=== PATIENT | male | born 1950 | race Caucasian/White ===

== ENCOUNTER → 2017-10-29 | Outpatient (CLI) | payer OTHER ==
--- NOTE | 2017-10-30 08:12 | CT ---
EXAMINATION TYPE: CT chest wo con DATE OF EXAM: 10/29/2017 COMPARISON: NONE at this location. HISTORY: follow up for COPD CT DLP: 645 mGycm, Automated exposure control for dose reduction was used. CONTRAST: Performed injected with 0 mL of Isovue 370. TECHNIQUE: Axial images were obtained at 5 mm thick sections. Reconstructed images are reviewed on [employer] computer in the coronal plane. FINDINGS: Portion of the thyroid visualized is normal. Degenerative changes and anterior cervical fus ion are evident in the lower cervical spine. Emphysematous changes are present. Paraseptal emphysematous changes appear to be present. Some basila r pulmonary fibrosis is likely present. Larger bullae and blebs are present on the right. Some scarri ng is likely present in the upper outer anterior position right upper lobe. Series 4 image 28. Underl ania mass is not excluded. This irregular area measures 1.1 x 1.5 cm in maximum dimensions. Monitorin g is recommended. Follow-up chest CT in 3-6 months is recommended. Multiple superior mediastinal lymph nodes are present. There is a 1.1 cm lymph node adjacent to the right subclavian vein. Additional subcentimeter lymph nodes are present. Pretracheal adenopathy is pr esent which is enlarged, the largest measures 1.3 cm above the bong. There is periaortic and aortop ulmonary window lymphadenopathy which is enlarged at 1.0 cm. Lack of intravenous contrast limits eval uation for hilar adenopathy. A 1.6 cm subcarinal lymph node is likely present. Smaller lymph adenopat hy is also present. The ascending aorta diameter at the level of the main pulmonary artery is 3.1 cm. The main pulmonary artery diameter at the bifurcation is 2.[address] sections are obtained through the upper abdomen. Abdomen is essentially unremarkable. Ther e is a small to moderate size hiatal hernia present. IMPRESSIONS: 1. Irregular area of increased density upper lateral right lung with extensive emphysematous change a djacent. Scarring is suspected. Underlying mass is not excluded. Follow-up exam in 3-6 months is mykel mmended. 2. Multiple enlarged mediastinal lymph nodes. The possibility of metastatic disease or lymphoma. A Yellow level critical message alert has been initiated for Linda Pollard via the [employer] Critical Results System on 10/30/2017 8:09 AM. This message alert has been sent to Linda Pollard via the preferences provided by the clinician for the receipt of Radiology Critical Fi ndings. Message ID [id number].
== END | disposition home or self-care (01) ==
LOC: RADCTMAIN 17:26
PROVIDERS: ATTEND Physician Assistant Medical
DX: J43.9 Emphysema, unspecified (principal); R59.0 Localized enlarged lymph nodes
CPT/HCPCS: 71250

== ENCOUNTER → 2017-11-23 | Outpatient (CLI) | payer OTHER ==
--- NOTE | 2017-11-24 12:37 | PE ---
Nuclear medicine PET/CT HISTORY: Abnormal chest CT, solitary pulmonary nodule, initial Patient received 12.3 mCi F-18 FDG intravenously in delayed scanning was performed from the skull bas e to the mid thighs. Localization and attenuation correction CT scan was performed. Correlation to chest CT 10/29/2017 Neck and chest: There is extensive emphysematous change, interstitial lung disease present. The nodul ar subpleural density shows associated hypermetabolic uptake, SUV is 7.3. No definite hypermetabolic activity noted within the mediastinum, hilum or axillary nodes, no evident neck adenopathy. There are enlarged retrocaval pretracheal node, prevascular nodes are present, subcarinal adenopathy, there is a hiatal hernia. Abdomen pelvis: No suspicious hypermetabolic uptake. No evident adrenal mass or liver mass. Aorta is ectatic and 3.2 cm in the infrarenal location. There are dense atherosclerotic calcifications within the wall. Bilateral inguinal hernias are present containing fat. Prostate is enlarged. Urinary bladde r shows a thickened wall possibly due to chronic outlet obstruction. Hutch diverticulum noted on the right. Osseous structures show degenerative disc disease and facet arthropathy and lumbar spine. No suspicio us hypermetabolic uptake. IMPRESSION: Right upper lobe mass is suspicious for bronchogenic carcinoma, shows associated hypermet abolic uptake.
== END | disposition home or self-care (01) ==
LOC: RADPETMAIN 10:13
PROVIDERS: ATTEND Physician Assistant Medical
DX: R91.8 Other nonspecific abnormal finding of lung field (principal)
CPT/HCPCS: 78815; A9552

== ENCOUNTER → 2018-03-22 | Outpatient (CLI) | payer OTHER ==
--- NOTE | 2018-03-23 07:07 | PE ---
EXAMINATION TYPE: PET CT fusion skull to thigh DATE OF EXAM: 03/22/2018 COMPARISON: Prior PET/CT November 23, 2017. Prior chest CT October 29, 2017. HISTORY: Lung cancer progress study. No interval treatment. TECHNIQUE: Following the intravenous administration of 10.44 mCi of F-18 FDG, whole body images are performed from the skull base to the midthigh. Images are reviewed on the computer in the coronal, a xial, and sagittal planes. Reconstructed rotating images are created on independent workstation and reviewed on the computer. A noncontrast CT is performed in conjunction with the PET scan. SCAN: Subsequent Scan FINDINGS: SKULL BASE AND NECK: No new areas of suspicious hypermetabolic uptake. CHEST, MEDIASTINUM, AND HILAR REGION: Moderate to advanced emphysematous change is redemonstrated wit h peripheral and bibasilar fibrosis again seen. Peripheral based mass in the right upper lobe is now present increased in size from prior exam measuring 4.4 x 3.2 cm axial image 85, max SUV is 13.13 on current study. There is new abnormal pericarinal lymph node measuring 2.1 x 1.8 cm axial image 86, max SUV is 5.52 o n current study. There is new hypermetabolic right tracheobronchial lymph node axial image 93, max HOLLAND V is 5.5. Prominent borderline enlarged anterior superior mediastinal as well as prevascular lymph nodes are re demonstrated without abnormal hypermetabolic uptake similar to prior. ABDOMEN AND PELVIS: No new areas of abnormal hypermetabolic uptake are seen. Normal excretion is pres ent. OSSEOUS STRUCTURES: No new areas of abnormal hypermetabolic uptake. OTHER CT: Marked tilting of patient's head makes evaluation of the head and neck suboptimal. Mild to moderate calcified plaque bilateral carotid bulb level is redemonstrated. There is coronary artery calcification and/or stent in the RCA distribution suspected. Small hiatal hernia is redemonstrated. There is atherosclerotic and ectatic abdominal aorta redemonstrated without significant interval choudhary ge. Fat-containing bilateral inguinal hernias, left slightly larger than right are redemonstrated. Prostate gland is upper limits of normal in size. There is multilevel spurring in the spine. There is facet arthropathy lower lumbar levels. IMPRESSION: Findings consistent with neoplastic progression as detailed above. TNM STAGING NOW T2b,N2,M0 AJCC STAGING NOW IIIA
== END | disposition home or self-care (01) ==
LOC: RADPETMAIN 09:23
PROVIDERS: ATTEND Radiology Diagnostic Radiology
DX: C34.11 Malignant neoplasm of upper lobe, right bronchus or lung (principal)
CPT/HCPCS: 78815; A9552